=== PATIENT | female | born 1940 | race Two or more races ===

== ENCOUNTER 2018-02-06 15:21 | Observation (INO) | payer OTHER ==
--- NOTE | 2018-02-06 15:29 | PDOC ---
History of Present Illness - General Stated Complaint: Syncope/Near Syncope Time Seen by Provider: 02/06/18 15:28 History Source: Patient Exam Limitations: Language Barrier (Son at bedside.) - History of Present Illness Initial Comments: 02/06/18 15:29 The patient is a 77F with a PMH of HTN and DM who presents to the ER after sustaining a fall. The son is at bedside and is translating as the pt refused a telephone dewaterer operator. The son states that he was having an argument with his mother and she "dramatically" fell to the ground. She fell face forward and hit her head. She denies LOC but admits to a headache located in her occiput. She denies neck pain. She admits to mild CP, sharp, retrosternal, nonradiating, nonpleuritic. She also states she became slightly lightheaded before she fell. She admits to epigastric abdominal pain, CP, and resolved lightheadedness. She denies SOB. Past History - Past Medical History Allergies/Adverse Reactions: Allergies Allergy/AdvReac Type Severity Reaction Status Date / Time No Known Allergies Allergy Verified 02/06/18 15:46 Home Medications: Ambulatory Orders Amiodarone HCl 200 mg PO DAILY 02/06/18 Apixaban [Eliquis] 2.5 mg PO BID 02/06/18 Atorvastatin Ca [Lipitor] 80 mg PO HS 02/06/18 Levothyroxine [Synthroid -] 100 mcg PO DAILY 02/06/18 Losartan Potassium 100 mg PO DAILY 02/06/18 levETIRAcetam [Keppra -] 500 mg PO BID 02/06/18 Review of Systems - Review of Systems Able to Perform ROS?: Yes Comments:: 02/06/18 16:48 GENERAL/CONSTITUTIONAL: Positive for fall. No fever or chills. No weakness. HEAD, EYES, EARS, NOSE AND THROAT: No change in vision. No ear pain or discharge. No sore throat. CARDIOVASCULAR: Positive for chest pain and lightheadedness. No palpitations. RESPIRATORY: No cough, wheezing, shortness of breath, or hemoptysis. GASTROINTESTINAL: Positive for abdominal pain. No nausea, vomiting, diarrhea, or constipation. GENITOURINARY: No dysuria, frequency, hematuria, or change in urination. MUSCULOSKELETAL: No joint or muscle swelling or pain. No neck or back pain. SKIN: No rash or lesions. NEUROLOGIC: No headache, numbness, tingling, weakness, loss of consciousness, or change in strength/sensation. ENDOCRINE: No increased thirst. No abnormal weight change. HEMATOLOGIC/LYMPHATIC: No anemia, easy bleeding, or history of blood clots. ALLERGIC/IMMUNOLOGIC: No hives or skin allergy. Is the patient limited Thai proficient: No *Physical Exam - Physical Exam Comments: 02/06/18 16:50 GENERAL: Well developed, well nourished. Awake and alert. No acute distress. HEENT: Normocephalic, atraumatic. Hearing grossly normal. Moist mucous membranes. PERRLA, EOMI. No conjunctival pallor. Sclera are non-icteric. NECK: Supple. Full ROM. No JVD. CARDIOVASCULAR: Regular rate and rhythm. No murmurs, rubs, or gallops. PULMONARY: No evidence of respiratory distress. Lungs clear to auscultation bilaterally. No wheezing, rales or rhonchi. ABDOMINAL: Soft. Non-tender. Non-distended. No rebound or guarding. GENITOURINARY: No CVA tenderness bilaterally. MUSCULOSKELETAL: TTP over anterior rib cage over sternum. Normal range of motion at all joints. EXTREMITIES: No cyanosis. No clubbing. No edema. No calf tenderness or swelling. SKIN: Warm and dry. Normal capillary refill. No rashes. No jaundice. NEUROLOGICAL: Alert, awake, appropriate. Cranial nerves 2-12 intact. Normal speech. PSYCHIATRIC: Cooperative. Good eye contact. Appropriate mood and affect. ED Treatment Course - LABORATORY CBC & Chemistry Diagram: 02/06/18 16:22 02/06/18 16:22 Medical Decision Making - Medical Decision Making 02/06/18 16:50 The patient is a 77F with a PMH of HTN and DM who presents after having a questionable syncope episode with CP, lightheadedness, and fall. CTH negative. EKG NSR. CBC, CMP, trop negative. HEART score of 4, will require obs. 02/06/18 18:35 I have endorsed the patient to Dr. Negrete for obs tele admission. *DC/Admit/Observation/Transfer Diagnosis at time of Disposition: Chest pain Qualifiers: Chest pain type: unspecified Qualified Code(s): R07.9 - Chest pain, unspecified - Discharge Dispostion Condition at time of disposition: Guarded Decision to Admit order: Yes - Referrals Referrals: Deonte Putnam MD [Primary Care Provider] - - Patient Instructions - Post Discharge Activity
[2018-02-06 15:50] VITALS: BMI 30.7
[2018-02-06] MEDS ORDERED: ACETAMINOPHEN 1000 MG/100 ML VIAL (NON FORMULARY) IVPB ONE (15:59)
[2018-02-06 16:31] LABS: HEMATOCRIT 36.5 % (32.4-45.2); HEMOGLOBIN 12.1 GM/dL (10.7-15.3); LYMPH % 30.3 % (8-40); MCH 29.8 pg (25.7-33.7); MCHC 33.1 g/dl (32.0-36.0); MEAN PLT VOLUME 8.3 fl (7.5-11.1); MONO % 10.5 % (3.8-10.2); NEUT % 54.2 % (42.8-82.8); PLATELET COUNT 201 K/MM3 (134-434); RBC 4.06 M/mm3 (3.60-5.2); RDW 15.1 % (11.6-15.6)
[2018-02-06 16:40] LABS: URINE APPEARANCE CLEAR; URINE BILIRUBIN NEGATIVE (<2.0 mg/dL); URINE COLOR STRAW; URINE GLUCOSE (UA) NEGATIVE (NEGATIVE); URINE KETONE NEGATIVE (NEGATIVE); URINE NITRITE NEGATIVE (NEGATIVE); URINE PROTEIN NEGATIVE (NEGATIVE); URINE UROBILINOGEN NEGATIVE mg/dL (0.2-1.0)
[2018-02-06] MEDS ORDERED: ACETAMINOPHEN 325 MG TABLET (FP) PO ONE (16:52)
[2018-02-06] MEDS ORDERED: ACETAMINOPHEN 325 MG TABLET (FP) ONE (16:53)
[2018-02-06 16:54] LABS: ALBUMIN 3.3 g/dl (3.4-5.0); ANION GAP 9 (8-16); BILIRUBIN,TOTAL 0.6 mg/dL (0.2-1.0); BLOOD UREA NITROGEN 23 mg/dL (7-18); CHLORIDE 109 mmol/L (98-107); CO2 27 mmol/L (21-32); GLUCOSE,RANDOM 106 mg/dL (74-106); LIPASE 112 U/L (73-393); SGOT/AST 35 U/L (15-37); SGPT/ALT 37 U/L (12-78); SODIUM 145 mmol/L (136-145); TOT PROT 8.3 g/dl (6.4-8.2)
[2018-02-06 16:56] LABS: URINE LEUK ESTERASE 2+ (NEGATIVE)
[2018-02-06 16:57] LABS: ALK PHOS 105 U/L (45-117)
[2018-02-06 17:00] LABS: EPI CELLS RARE /HPF (FEW); URINE MUCUS RARE
--- NOTE | 2018-02-06 17:35 | PDOC ---
Attending Attestation - HPI HPI: 02/06/18 17:39 The patient is a 77 year old female with a significant past medical history of HTN and DM who presents to the ER with chest pain and head pain after sustaining a fall today. The son is at bedside and is translating as the pt refused a telephone urgent care physician assistant. The son states that he was having an argument with his mother and she "dramatically" fell to the ground. He states the patient fell face forward and hit her head. She denies LOC but admits to a headache located to her posterior head. She reports mild chest pain which she describes as sharp, to her midsternal region, nonradiating, nonpleuritic. She also states she became slightly lightheaded before she fell. The patient denies shortness of breath, headache and dizziness. The patient denies fever, chills, nausea, vomit, diarrhea and constipation. The patient denies dysuria, frequency, urgency and hematuria. Allergies: NKDA - Physicial Exam PE: 02/06/18 17:40 ROS: A complete review of 10 out of 10 review of systems is taken and is negative apart from what is previously mentioned below and in the HPI. Vitals: Triage vital signs reviewed General Appearance: No acute distress, well nourished, well developed Head: Atraumatic Eyes: Pupils equal reactive round, extraocular movement intact Neck: Supple; No nuchal rigidity Chest Wall: +mildly tender to palpation Cardiac: Regular rate and rhythm, no murmurs, no rubs, no gallops Lungs: Clear to auscultation bilateral, good air movement bilaterally Abdomen: Soft, nondistended, normal bowel sounds, nontender to palpation Extremities: Full range of motion to all extremities, no cyanosis, clubbing, or edema Skin: Warm and dry, no rashes or lesions, no rash, no petechiae Neuro: AOX3; Cranial Nerves 2-12 grossly intact, Strength intact to all extremities, Sensation intact to all extremities, gait normal Psych: Normal mood, normal affect - Medical Decision Making 02/06/18 17:39 77 year old female with a significant past medical history of HTN and DM who presents to the ER with chest pain and head pain after sustaining a fall today. Plan: ekg, labs, meds 02/06/18 17:40 Documentation prepared by Nithya Shirley, acting as medical transcription editor for Hermann Little MD <Nithya Shirley - Last Filed: 02/06/18 18:55> - Resident Resident Name: Daniele Huerta - ED Attending Attestation I have performed the following: I have examined & evaluated the patient, The case was reviewed & discussed with the resident, I agree w/resident's findings & plan, Exceptions are as noted - Medical Decision Making Heart score 4 atypical chest discomfort We'll admit to medicine for serial troponins and further management. <Hermann Little - Last Filed: 02/06/18 19:25> Heart Score/ECG Review - ECG Impressions Comment:: 02/06/18 19:24 EKG performed at 1657 demonstrates normal sinus rhythm incomplete right bundle- branch block no ST elevations isolated T-wave inversion in lead 3 Interpreted by me. <Hermann Little - Last Filed: 02/06/18 19:25>
[2018-02-06 19:33] LABS: INR 1.12 (0.82-1.09); PROTHROMBIN TIME (PATIENT) 12.6 SEC (9.7-13.0)
--- NOTE | 2018-02-06 20:57 | PN ---
Teaching Attending Note Name of Resident: Rah Chang ATTENDING PHYSICIAN STATEMENT I saw and evaluated the patient. I reviewed the resident's note and discussed the case with the resident. I agree with the resident's findings and plan as documented. SUBJECTIVE: Patient is a 77 year of woman with a PMH of HTN and NIDDM who presents to the ER after a fall. The son states that he was having an argument with his mother and she "dramatically" fell to the ground. She fell face forward and hit her head. She denies LOC but admits to a headache located in her occiput. She denies neck pain. She admits to mild chest pain, sharp, retrosternal, nonradiating, and nonpleuritic. She also states she became slightly lightheaded before she fell. She denies diaphoresis or SOB. She has a history of and "arrhythmia" - likely paroxysmal afib for which she is on amiodarone and Eliquis. OBJECTIVE: Alert and still has occipital headache. Not orthostatic. Vital Signs Period Temp Pulse Resp BP Sys/Su Pulse Ox Last 24 Hr 97.7 F-98.6 F 62-77 18-20 183-204/86-104 96-98 HEENT: No Jaundice, eye redness or discharge, PERRLA, EOMI. Poor dentition. Normocephalic, atraumatic. Impaired vision. External ears are normal and hearing is grossly intact. No nasal discharge. Neck: Supple, nontender. No palpable adenopathy or thyromegaly. No JVD Chest: Good effort. Clear to auscultation and percussion. Heart: Regular. No S3, rub or murmur Abdomen: Not distended, soft, nontender and no HSM. No rebound or guarding. Normoactive bowel sounds. Ext: Peripheral pulses intact. Tenderness in her legs. No leg edema. Skin: Warm and dry. No petechiae, rash or ecchymosis. Neuro: Alert. Oriented x3. CN 2-12 grossly intact. Sensation grossly intact in all four extremities and DTR are symmetric. Home Medications Medication Instructions Recorded Amiodarone HCl 200 mg PO DAILY 02/06/18 Apixaban [Eliquis] 2.5 mg PO BID 02/06/18 Atorvastatin Ca [Lipitor] 80 mg PO HS 02/06/18 Levothyroxine [Synthroid -] 100 mcg PO DAILY 02/06/18 Losartan Potassium 100 mg PO DAILY 02/06/18 levETIRAcetam [Keppra -] 500 mg PO BID 02/06/18 Abnormal Lab Results 02/06/18 02/06/18 02/06/18 16:22 16:22 16:27 Monocytes % 10.5 H Chloride 109 H BUN 23 H Total Protein 8.3 H Albumin 3.3 L Ur Leukocyte Esterase 2+ H ASSESSMENT AND PLAN: 1. Syncope - Sounds like vasovagal syncope. Head CT is negative. In view of chest pain, will admit to telemetry to rule out ACS. Initial troponin and EKG are negative for ACSl. Get carotid doppler, brain MRI/MRA and ECHO. Consult neurology and cardiology. She does not know why she is on Eliquis - repeat head CT scan tomorrow if headache persists. Will get an xray to rule out leg fracture. Add amlodipine 5 mg po q pm to ensure smooth round the clock BP control and stress low salt diet. 2. Seizure disorder - Continue keppra. 3. DVT prophylaxis - On Eliquis 4. Advance directives - Full code
[2018-02-07] MEDS ORDERED: ACETAMINOPHEN 325 MG TABLET (FP) PO PRN ×2 (01:46→01:51)
[2018-02-07] MEDS ORDERED: amLODIPine BESYLATE 2.5 MG TABLET (FP) PO SCH (01:47)
[2018-02-07] MEDS ORDERED: amLODIPine BESYLATE 5 MG TABLET (FP) ONE (01:55)
--- NOTE | 2018-02-07 04:17 | HP ---
CHIEF COMPLAINT: PCP: HISTORY OF PRESENT ILLNESS: Personal Clothing Laundry Aide [id number]. Pt is a poor historian 77F with a PMH of HTN, hypothyroid and DM p/w mechanical fall. Per son, he was having an argument with his mother and she "dramatically" fell to the ground. She fell face forward and hit her head. Per pt, she felt lightheaded before she fell but denies LOC. After falling she felt a headache located in her occiput and some mild CP, sharp, retrosternal, nonradiating, nonpleuritic, says this CP is similar but not as bad as her CP in [place] where she went to hospital and was told she "almost had a heart attack". Pt endorses multiple hx of falls, says her legs feel weak. Has fallen in shower and at rehab center, due to falls she has had had hip frax. Denies fevers, abd pain, n/v/d, dysuria, hematuria, blood in stools ER course was notable for: (1)tylenol (2) (3) Recent Travel: PAST MEDICAL HISTORY: cataracts in eyes eye doc - one mo ago foot doc - ? thyroid cancer? says got bx 3 mo ago and was told she has cancer, she is do for another bx in a mo. pt taking synthroid hip fractures - has had multiple falls PAST SURGICAL HISTORY: dean Social History: Smoking: denies Alcohol:denies Drugs: denies Family History: mom DM sister heart problems Allergies Penicillins Allergy (Severe, Verified 02/07/18 00:45) Swelling HOME MEDICATIONS: Home Medications Medication Instructions Recorded Amiodarone HCl 200 mg PO DAILY 02/06/18 Apixaban [Eliquis] 2.5 mg PO BID 02/06/18 Atorvastatin Ca [Lipitor] 80 mg PO HS 02/06/18 Levothyroxine [Synthroid -] 100 mcg PO DAILY 02/06/18 Losartan Potassium 100 mg PO DAILY 02/06/18 levETIRAcetam [Keppra -] 500 mg PO BID 02/06/18 REVIEW OF SYSTEMS reviewed in HPI PHYSICAL EXAMINATION Vital Signs - 24 hr 02/06/18 02/06/18 02/06/18 15:46 18:39 20:27 Temperature 98.6 F 97.7 F Pulse Rate 77 Pulse Rate [ 66 62 Left Radial] Respiratory 18 20 20 Rate Blood Pressure 204/104 Blood Pressure 183/88 187/86 [Left Arm] O2 Sat by Pulse 97 96 98 Oximetry (%) 02/07/18 02:12 Temperature Pulse Rate Pulse Rate [ 63 Left Radial] Respiratory 20 Rate Blood Pressure Blood Pressure 157/79 [Left Arm] O2 Sat by Pulse 100 Oximetry (%) GENERAL: Awake, alert, and fully oriented, in mild distress. obese HEAD: Normal with no obvious signs of trauma. EYES: PERRLA, extraocular movements intact, sclera anicteric, conjunctiva clear. No lid lag. EARS, NOSE, THROAT: nares patent, oropharynx clear without exudates. MMM. poor dentition NECK: Normal range of motion, supple without lymphadenopathy, JVD, or masses. LUNGS: CTAB. No wheezes, and no crackles. No accessory muscle use. HEART: RRR, normal S1 and S2 without murmur, rub or gallop. TTP w/ sternal rub ABDOMEN: Soft, NTND +BS, no guarding, no rebound, no masses. No hepatomegaly or splenomegaly. MUSCULOSKELETAL: LE exam limited due to pain. TTP along hips/pelvic b/l UPPER EXTREMITIES: 2+ pulses, warm, well-perfused. No cyanosis. No clubbing. No peripheral edema. LOWER EXTREMITIES: feet were cold but well perfused and 2+ pulses. +calf tenderness b/l. TTP along tibia b/l. No peripheral edema. NEUROLOGICAL: Cranial nerves II-XII intact. Normal speech. SKIN: Warm, dry, normal turgor, no rashes or lesions noted, normal capillary refill. Laboratory Results - last 24 hr 02/06/18 02/06/18 02/06/18 16:22 16:22 16:27 WBC 4.0 RBC 4.06 Hgb 12.1 Hct 36.5 MCV 90.0 MCH 29.8 MCHC 33.1 RDW 15.1 Plt Count 201 MPV 8.3 Absolute Neuts (auto) 2.2 Neutrophils % 54.2 Lymphocytes % 30.3 Monocytes % 10.5 H Eosinophils % 4.0 Basophils % 1.0 Nucleated RBC % 0 PT with INR INR Sodium 145 Potassium 4.0 Chloride 109 H Carbon Dioxide 27 Anion Gap 9 BUN 23 H Creatinine 1.0 Creat Clearance w eGFR 53.48 Random Glucose 106 Calcium 9.0 Total Bilirubin 0.6 AST 35 ALT 37 Alkaline Phosphatase 105 Creatine Kinase 48 Troponin I < 0.02 C-Reactive Protein Total Protein 8.3 H Albumin 3.3 L Lipase 112 TSH Urine Color Straw Urine Appearance Clear Urine pH 7.0 Ur Specific [place] 1.010 Urine Protein Negative Urine Glucose (UA) Negative Urine Ketones Negative Urine Blood Negative Urine Nitrite Negative Urine Bilirubin Negative Urine Urobilinogen Negative Ur Leukocyte Esterase 2+ H Urine WBC (Auto) 1 Urine RBC (Auto) 1 Ur Epithelial Cells Rare Urine Mucus Rare 02/06/18 02/07/18 02/07/18 19:00 02:05 02:05 WBC RBC Hgb Hct MCV MCH MCHC RDW Plt Count MPV Absolute Neuts (auto) Neutrophils % Lymphocytes % Monocytes % Eosinophils % Basophils % Nucleated RBC % PT with INR 12.60 INR 1.12 Sodium Potassium Chloride Carbon Dioxide Anion Gap BUN Creatinine Creat Clearance w eGFR Random Glucose Calcium Total Bilirubin AST ALT Alkaline Phosphatase Creatine Kinase Troponin I 0.03 C-Reactive Protein < 0.3 Total Protein Albumin Lipase TSH 0.19 L Urine Color Urine Appearance Urine pH Ur Specific [place] Urine Protein Urine Glucose (UA) Urine Ketones Urine Blood Urine Nitrite Urine Bilirubin Urine Urobilinogen Ur Leukocyte Esterase Urine WBC (Auto) Urine RBC (Auto) Ur Epithelial Cells Urine Mucus ASSESSMENT/PLAN: 77F with a PMH of HTN, hypothyroid and DM p/w mechanical fall/possible syncope Syncope - likely vasovagal syncope, no prodromal or seizure activity was noted. will admit to tele to monitor and evaluate for other possible causes. Pt is taking home meds for possible arrhythmia? was dx and tx in [place]. Pt also endorsing weakness/pain in legs and feeling unbalanced -Head CT is negative for stroke hemorrhage. Although she is on Eliquis (doesnt know why) - rpt head CT scan tomorrow if headache persists -brain MRI/MRA r/o stroke -carotid doppler and ECHO -Consult neurology and cardiology -orthostatics -xray to rule out leg fracture and hip fracture -ESR/CRP - for possible muscle inflammation/disease as cause for her LE pain and weakness Chest pain- will admit to tele and rule out ACS, although initial troponin and EKG are negative for ACSl. CP is reproducible on PE Seizure disorder - Continue home dose keppra. HTN - BP was noted to be 204/104 and then 187/86 -Add amlodipine 5 mg po q pm to ensure smooth round the clock BP control -low salt diet. -c/w losartan home dose DM - not on insulin or meds -Hgb A1c -BGM -sliding scale Thyroid - taking meds for Hypothyroid. per pt has thyroid CA? can try confirming -TSH, T4, T3 Obesity - -Will provide necessary assistance , counseling and positive reinforcement to facilitate weight loss. -Consult personal computer specialist. HCM -c/w home dose meds for HTN, HLD, seizure, hypothyroid -c/w home dose meds for arrhythmia? #FEN -no IVF at this time -replete lytes as needed -low sodium/fat/diabetic diet #DVTppx On Eliquis #Dispo -admit to tele -Full code case discussed with attending, Dr. Lares. -Rah Chang MD PGY1 Visit type - Emergency Visit Emergency Visit: Yes ED Registration Date: 02/07/18 Care time: The patient presented to the Emergency Department on the above date and was hospitalized for further evaluation of their emergent condition. - New Patient This patient is new to me today: Yes Date on this admission: 02/07/18 - Critical Care Critical Care patient: No Hospitalist Screening - Colonoscopy Questionnaire Colonoscopy Questionnaire: Colonoscopy Questionnaire - Patient: 50 - 75 years old and never had a screening colonoscopy: Unknown History of colon or rectal polyps, or CA: Unknown History of IBD, Crohn's disease or UC: Unknown History of abdominal radiation therapy as a child: Unknown - Relative: 1 with colon or rectal CA, or polyps at age 60 or younger: Unknown Colon or rectal CA diagnosed at age 45 or younger: Unknown Multiple relatives with colon or rectal CA: Unknown - Outcome: Screening Result: Negative Screen
[2018-02-07 06:17] LABS: BASO % 0.8 % (0-2.0); EOS % 3.4 % (0-4.5); HEMATOCRIT 34.3 % (32.4-45.2); HEMOGLOBIN 11.4 GM/dL (10.7-15.3); LYMPH % 32.4 % (8-40); MCHC 33.3 g/dl (32.0-36.0); MEAN CELL VOLUME 89.9 fl (80-96); MEAN PLT VOLUME 8.3 fl (7.5-11.1); MONO % 9.4 % (3.8-10.2); PLATELET COUNT 172 K/MM3 (134-434); RBC 3.81 M/mm3 (3.60-5.2); RDW 15.1 % (11.6-15.6); WHITE BLOOD COUNT 3.9 K/mm3 (4.0-10.0)
[2018-02-07 06:46] LABS: ALBUMIN 3.3 g/dl (3.4-5.0); ALK PHOS 105 U/L (45-117); ANION GAP 6 (8-16); BILIRUBIN,TOTAL 0.7 mg/dL (0.2-1.0); BLOOD UREA NITROGEN 25 mg/dL (7-18); CALCIUM 8.8 mg/dL (8.5-10.1); CHLORIDE 109 mmol/L (98-107); CO2 29 mmol/L (21-32); CREATININE 1.1 mg/dL (0.55-1.02); GLUCOSE,RANDOM 106 mg/dL (74-106); MAGNESIUM 2.2 mg/dL (1.8-2.4); PHOSPHOROUS 3.6 mg/dL (2.5-4.9); POTASSIUM 3.9 mmol/L (3.5-5.1); SGOT/AST 29 U/L (15-37); SGPT/ALT 35 U/L (12-78); SODIUM 144 mmol/L (136-145); TOT PROT 7.9 g/dl (6.4-8.2)
[2018-02-07] MEDS ORDERED: INSULIN (NOVOLOG) ASPART 100 UNITS/ML 10ML VIAL SQ SCH (07:00)
[2018-02-07 07:04] LABS: INR 1.11 (0.82-1.09); PROTHROMBIN TIME (PATIENT) 12.5 SEC (9.7-13.0)
[2018-02-07 07:07] LABS: ACTIVATED PTT 30.9 SECONDS (25.2-36.5)
[2018-02-07] MEDS ORDERED: LEVOTHYROXINE NA 25 MCG TABLET (FP) ONE (08:11)
[2018-02-07] MEDS: LEVOTHYROXINE NA 100 MCG TABLET (FP) PO SCH (08:16)
[2018-02-07] MEDS: levETIRAcetam 500 MG TABLET (FP) PO SCH ×2 (09:43→21:26)
[2018-02-07] MEDS: APIXABAN 2.5 MG TABLET PO SCH ×2 (09:43→21:26)
[2018-02-07] MEDS: AMIODARONE HCL 200 MG TABLET (FP) PO SCH (09:43)
[2018-02-07] MEDS: amLODIPine BESYLATE 5 MG TABLET (FP) PO SCH (09:43)
[2018-02-07] MEDS: LOSARTAN POTASSIUM 50 MG TABLET (FP) PO SCH (09:43)
--- NOTE | 2018-02-07 09:47 | CONSULT ---
Consult - text type - Consultation Consultation Note: Neurology HISTORY OF PRESENT ILLNESS: 77F with a PMH of HTN, hypothyroid and DM p/w mechanical fall. Per son, he was having an argument with his mother and she "dramatically" fell to the ground. She fell face forward and hit her head. Per pt, she felt lightheaded before she fell but denies LOC. After falling she felt a headache located in her occiput and some mild CP, sharp, retrosternal, nonradiating, nonpleuritic, says this CP is similar but not as bad as her CP in [place] where she went to hospital and was told she "almost had a heart attack". CT head completed and without acute changes. During my evaluation, no complaints and states she is at baseline. CT head completed and without acute changes. Is at baseline. PAST MEDICAL HISTORY: cataracts in eyes eye doc - one mo ago foot doc - ? thyroid cancer? says got bx 3 mo ago and was told she has cancer, she is do for another bx in a mo. pt taking synthroid hip fractures - has had multiple falls PAST SURGICAL HISTORY: dean Social History: Smoking: denies Alcohol:denies Drugs: denies Family History: mom DM sister heart problems Allergies Penicillins Allergy (Severe, Verified 02/07/18 00:45) Swelling HOME MEDICATIONS: Home Medications Medication Instructions Recorded Amiodarone HCl 200 mg PO DAILY 02/06/18 Apixaban [Eliquis] 2.5 mg PO BID 02/06/18 Atorvastatin Ca [Lipitor] 80 mg PO HS 02/06/18 Levothyroxine [Synthroid -] 100 mcg PO DAILY 02/06/18 Losartan Potassium 100 mg PO DAILY 02/06/18 levETIRAcetam [Keppra -] 500 mg PO BID 02/06/18 REVIEW OF SYSTEMS Negative except HPI PHYSICAL EXAMINATION Vital Signs Period Temp Pulse Resp BP Sys/Su Pulse Ox Last 24 Hr 97.6 F-98.6 F 60-77 14-20 140-204/75-108 96-100 GENERAL: Awake, alert, and fully oriented, in mild distress. obese HEAD: Normal with no obvious signs of trauma. EYES: PERRLA, extraocular movements intact, sclera anicteric, conjunctiva clear. No lid lag. EARS, NOSE, THROAT: nares patent, oropharynx clear without exudates. MMM. poor dentition NECK: Normal range of motion, supple without lymphadenopathy, JVD, or masses. LUNGS: CTAB. No wheezes, and no crackles. No accessory muscle use. HEART: RRR, normal S1 and S2 without murmur, rub or gallop. TTP w/ sternal rub ABDOMEN: Soft, NTND +BS, no guarding, no rebound, no masses. No hepatomegaly or splenomegaly. MUSCULOSKELETAL: LE exam limited due to pain. TTP along hips/pelvic b/l UPPER EXTREMITIES: 2+ pulses, warm, well-perfused. No cyanosis. No clubbing. No peripheral edema. LOWER EXTREMITIES: feet were cold but well perfused and 2+ pulses. +calf tenderness b/l. TTP along tibia b/l. No peripheral edema. NEUROLOGICAL: Cranial nerves II-XII intact. Normal speech, moves all extremities equally sensory intact, gait without ataxia SKIN: Warm, dry, normal turgor, no rashes or lesions noted, normal capillary refill. Laboratory Results - last 24 hr 02/06/18 02/06/18 02/06/18 16:22 16:22 16:27 WBC 4.0 RBC 4.06 Hgb 12.1 Hct 36.5 MCV 90.0 MCH 29.8 MCHC 33.1 RDW 15.1 Plt Count 201 MPV 8.3 Absolute Neuts (auto) 2.2 Neutrophils % 54.2 Lymphocytes % 30.3 Monocytes % 10.5 H Eosinophils % 4.0 Basophils % 1.0 Nucleated RBC % 0 PT with INR INR Sodium 145 Potassium 4.0 Chloride 109 H Carbon Dioxide 27 Anion Gap 9 BUN 23 H Creatinine 1.0 Creat Clearance w eGFR 53.48 Random Glucose 106 Calcium 9.0 Total Bilirubin 0.6 AST 35 ALT 37 Alkaline Phosphatase 105 Creatine Kinase 48 Troponin I < 0.02 C-Reactive Protein Total Protein 8.3 H Albumin 3.3 L Lipase 112 TSH Urine Color Straw Urine Appearance Clear Urine pH 7.0 Ur Specific [place] 1.010 Urine Protein Negative Urine Glucose (UA) Negative Urine Ketones Negative Urine Blood Negative Urine Nitrite Negative Urine Bilirubin Negative Urine Urobilinogen Negative Ur Leukocyte Esterase 2+ H Urine WBC (Auto) 1 Urine RBC (Auto) 1 Ur Epithelial Cells Rare Urine Mucus Rare 02/06/18 02/07/18 02/07/18 19:00 02:05 02:05 WBC RBC Hgb Hct MCV MCH MCHC RDW Plt Count MPV Absolute Neuts (auto) Neutrophils % Lymphocytes % Monocytes % Eosinophils % Basophils % Nucleated RBC % PT with INR 12.60 INR 1.12 Sodium Potassium Chloride Carbon Dioxide Anion Gap BUN Creatinine Creat Clearance w eGFR Random Glucose Calcium Total Bilirubin AST ALT Alkaline Phosphatase Creatine Kinase Troponin I 0.03 C-Reactive Protein < 0.3 Total Protein Albumin Lipase TSH 0.19 L Urine Color Urine Appearance Urine pH Ur Specific [place] Urine Protein Urine Glucose (UA) Urine Ketones Urine Blood Urine Nitrite Urine Bilirubin Urine Urobilinogen Ur Leukocyte Esterase Urine WBC (Auto) Urine RBC (Auto) Ur Epithelial Cells Urine Mucus CT head reviewed ASSESSMENT/PLAN: 77F with a PMH of HTN, hypothyroid and DM p/w mechanical fall. Per son, he was having an argument with his mother and she "dramatically" fell to the ground. She fell face forward and hit her head. Per pt, she felt lightheaded before she fell but denies LOC. After falling she felt a headache located in her occiput and some mild CP, sharp, retrosternal, nonradiating, nonpleuritic, says this CP is similar but not as bad as her CP in [place] where she went to hospital and was told she "almost had a heart attack". CT head completed and without acute changes. During my evaluation, no complaints and states she is at baseline. CT head completed and without acute changes. Is at baseline. MRI, MRA discontined, not needed check orthostatics Cardiology eval/ followup Increase hydration can have physical therapy Event not consistent with seizure, can continue home medication Monitor blood pressure, maintain normotensive range Can cont losartan, follow up cardiology recs Monitor Glucose, maintain euglycemic range Fall precautions
--- NOTE | 2018-02-07 10:07 | EKG ---
Test Reason : Blood Pressure : / mmHG Vent. Rate : 068 BPM Atrial Rate : 068 BPM P-R Int : 156 ms QRS Dur : 112 ms QT Int : 448 ms P-R-T Axes : 039 -25 018 degrees QTc Int : 476 ms NORMAL SINUS RHYTHM INCOMPLETE RIGHT BUNDLE BRANCH BLOCK VOLTAGE CRITERIA FOR LEFT VENTRICULAR HYPERTROPHY ABNORMAL ECG NO PREVIOUS ECGS AVAILABLE Confirmed by CLEMENTINA PLAZA MD ([id number]) on 02/07/2018 10:07:06 AM Referred By: Confirmed By:CLEMENTINA PLAZA MD
--- NOTE | 2018-02-07 12:11 | CON.CARD ---
Consult Consult Specialty:: Cardiology - History of Present Illness Chief Complaint: syncope History of Present Illness: 77F with a PMH of HTN, hypothyroid and DM p/w mechanical fall. Per son, he was having an argument with his mother and she "dramatically" fell to the ground. She fell face forward and hit her head. Per pt, she felt lightheaded before she fell but denies LOC. After falling she felt a headache located in her occiput and some mild CP, sharp, retrosternal, nonradiating, nonpleuritic, says this CP is similar but not as bad as her CP in [place] where she went to hospital and was told she "almost had a heart attack". Pt endorses multiple hx of falls, says her legs feel weak. Has fallen in shower and at rehab center, due to falls she has had had hip frax. - History Source History Provided By: Patient, Medical Record - Alcohol/Substance Use Hx Alcohol Use: No - Smoking History Smoking history: Never smoked Have you smoked in the past 12 months: No Home Medications - Allergies Allergies/Adverse Reactions: Allergies Allergy/AdvReac Type Severity Reaction Status Date / Time Penicillins Allergy Severe Swelling Verified 02/07/18 00:45 - Home Medications Home Medications: Ambulatory Orders Amiodarone HCl 200 mg PO DAILY 02/06/18 Apixaban [Eliquis] 2.5 mg PO BID 02/06/18 Atorvastatin Ca [Lipitor] 80 mg PO HS 02/06/18 Levothyroxine [Synthroid -] 100 mcg PO DAILY 02/06/18 Losartan Potassium 100 mg PO DAILY 02/06/18 levETIRAcetam [Keppra -] 500 mg PO BID 02/06/18 Vital Signs: Vital Signs Temperature 98 F 02/07/18 09:43 Pulse Rate 69 02/07/18 09:43 Respiratory Rate 14 02/07/18 09:43 Blood Pressure 160/89 02/07/18 09:43 O2 Sat by Pulse Oximetry (%) 99 02/07/18 09:43 - Other Data Labs, Other Data: CBC, BMP 02/07/18 06:05 02/07/18 06:05 INR, PTT INR 1.11 (0.82-1.09) 02/07/18 06:05 Troponin, BNP 02/06/18 02/07/18 02/07/18 16:22 02:05 06:05 Troponin I < 0.02 0.03 < 0.02 02/07/18 09:44 Troponin I < 0.02 Troponin, BNP 02/06/18 02/07/18 02/07/18 16:22 02:05 06:05 Troponin I < 0.02 0.03 < 0.02 02/07/18 09:44 Troponin I < 0.02 Imaging - Results Chest X-ray: Image Reviewed (no i/e) EKG: Image Reviewed (sr incomplete rbbb rep abn) Problem List - Problems (1) Chest pain Code(s): R07.9 - CHEST PAIN, UNSPECIFIED Qualifiers: Chest pain type: unspecified Qualified Code(s): R07.9 - Chest pain, unspecified Assessment/Plan syncope cp dm hypothyroidism htn hlp unclear why on AC AC with Eliquis ?-Amiodarone - suggests PAF Plan; echo c duplex telemetry r/o mi old records will need a stress test for risk stratification
--- NOTE | 2018-02-07 14:30 | ECHO ---
Name: MARLYN ZAVALA Exam:Adult Echocardiogram Study Date: 02/07/2018 08:40 AM Age: 77 yrs Reason For Study: SYNCOPE Height: 69 in Weight: 208 lb BSA: 2.1 m2 MMode/2D Measurements & Calculations IVSd: 1.4 cm Ao root diam: 3.1 cm LVIDd: 3.9 cm LA dimension: 3.6 cm LVIDs: 2.9 cm LVPWd: 1.4 cm EDV(Teich): 67.0 ml ESV(Teich): 32.4 ml Doppler Measurements & Calculations MV E max edgar: 78.1 cm/sec AI P1/2t: 1828 msec MV A max edgar: 110.6 cm/sec MV E/A: 0.71 MV dec time: 0.44 sec AI max edgar: 202.2 cm/sec Med Peak E' Edgar: 8.2 cm/sec AI max P.4 mmHg Med E/e': 9.6 Lat Peak E' Edgar: 8.2 cm/sec AI dec slope: 32.4 cm/sec2 Lat E/e': 9.6 Procedure A two-dimensional transthoracic echocardiogram with color flow and Doppler was performed. The study w as technically difficult with many images being suboptimal in quality. Left Ventricle There is mild concentric left ventricular hypertrophy. The left ventricular ejection fraction is norm al. E/A reversal consistent with but not diagnostic of poor LV compliance. The left ventricular wall motion i s normal. Right Ventricle The right ventricle is normal in size and function. Atria Normal left and right atrial size and function. Mitral Valve There is mild mitral valve thickening. There is no mitral valve stenosis. There is mild mitral regurg itation. Tricuspid Valve There is mild tricuspid valve thickening. There is no tricuspid stenosis. There was insufficient TR d etected to calculate RV systolic pressure. Aortic Valve The aortic valve is not well visualized. No hemodynamically significant valvular aortic stenosis. Tra ce aortic regurgitation. Pulmonic Valve The pulmonic valve is not well visualized. There is no pulmonic valvular stenosis. There is no pulmon ic valvular regurgitation. Great Vessels The aortic root is normal size. Pericardium/Pleura There is no pericardial effusion. Interpretation Summary There is mild concentric left ventricular hypertrophy. The left ventricular ejection fraction is normal. The left ventricular wall motion is normal. There is mild mitral regurgitation. The study was technically difficult with many images being suboptimal in quality. Trace aortic regurgitation. E/A reversal consistent with but not diagnostic of poor LV compliance MD Fransisco Redding 02/07/2018 02:29 PM
--- NOTE | 2018-02-07 14:55 | PN ---
Teaching Attending Note Name of Resident: Danish Cheek ATTENDING PHYSICIAN STATEMENT I saw and evaluated the patient. I reviewed the resident's note and discussed the case with the resident. I agree with the resident's findings and plan as documented. SUBJECTIVE: seen , in am denied CP or SOB, or GUTIERREZ , or visual changes. no pain any where in her body OBJECTIVE: NAD CV: RRR Lungs: CTAB ext: TTP in L leg . no edema or erythema. Neuro" EOMI, round equal reactive pupils. no facial droop. tongue at mid line. strength ( poor cooperation , unable to evaluate strength at LE ) has 5/5 strength in upper extremities proximally and distally. sensation to light touch NL. 2+ knee jerk b/l and 1+ biceps b/l ASSESSMENT AND PLAN: 77 y/o lady with h/o Dm, HTN, and arrhythmia ( likely A fib on amio and eliquis ) who presented with a fall and questionable syncope during an argument with her son. 1- fall , and questionable syncope: patient is poor historian and changes her story. unlikely had syncope, and if she did , likely it was vasovagal. . neg orthostatics. , neg head CT. Nl neuro exam ( limited though), no suspicion for stroke or seizure. No need for MRI 2- CP: resolved. EKG with sinus rhythm with TWI in III. Nl trop will confirm with card if stress test can be done as out pt 3- h/o Arrhythmia ( likely A fib, on eliquis and Amiodarone ) - cont meds . will confirm her eliquis dose ( 2.5 vs 5 BID ) - f/u with card 4-h/o seizure : cont home keppra 5- HTN urgency : cont Losartan and Norvasc. dipso : depends on her stress test .
--- NOTE | 2018-02-07 18:21 | PN ---
Physical Exam: SUBJECTIVE: Patient seen and examined at bedside. No acute complaints. OBJECTIVE: Vital Signs Period Temp Pulse Resp BP Sys/Su Pulse Ox Last 24 Hr 97.6 F-98.3 F 60-78 14-20 132-187/75-108 96-100 GENERAL: The patient is awake, alert, and fully oriented, in no acute distress. HEAD: Normal with no signs of trauma. EYES: PERRLA, EOMI ENT: moist mucous membranes NECK: Trachea midline, full range of motion, supple LUNGS: Breath sounds equal, clear to auscultation bilaterally, no wheezes, no crackles, no accessory muscle use HEART: Regular rate and rhythm, S1, S2 without murmur, rub or gallop. Pain reproduced by palpation of chest wall. ABDOMEN: +bs, soft, NT, ND, vertical scar from umbilicus to symphysis pubis EXTREMITIES: 2+ pulses, warm, well-perfused, no edema, no LE swelling MSK: TTP diffusely, greatest at right hip and knee NEUROLOGICAL: Cranial nerves II-XII intact b/l, sensorium intact, poor compliance with motor strength assessment Laboratory Results - last 24 hr 02/06/18 02/07/18 02/07/18 19:00 02:05 02:05 WBC RBC Hgb Hct MCV MCH MCHC RDW Plt Count MPV Absolute Neuts (auto) Neutrophils % Lymphocytes % Monocytes % Eosinophils % Basophils % Nucleated RBC % ESR PT with INR 12.60 INR 1.12 PTT (Actin FS) Sodium Potassium Chloride Carbon Dioxide Anion Gap BUN Creatinine Creat Clearance w eGFR POC Glucometer Random Glucose Hemoglobin A1c % Calcium Phosphorus Magnesium Total Bilirubin AST ALT Alkaline Phosphatase Creatine Kinase Troponin I 0.03 C-Reactive Protein < 0.3 Total Protein Albumin TSH 0.19 L 02/07/18 02/07/18 02/07/18 06:05 06:05 06:05 WBC 3.9 L RBC 3.81 Hgb 11.4 Hct 34.3 MCV 89.9 MCH 30.0 MCHC 33.3 RDW 15.1 Plt Count 172 MPV 8.3 Absolute Neuts (auto) 2.1 Neutrophils % 54.0 Lymphocytes % 32.4 Monocytes % 9.4 Eosinophils % 3.4 Basophils % 0.8 Nucleated RBC % 0 ESR PT with INR 12.50 INR 1.11 PTT (Actin FS) 30.9 Sodium 144 Potassium 3.9 Chloride 109 H Carbon Dioxide 29 Anion Gap 6 L BUN 25 H Creatinine 1.1 H Creat Clearance w eGFR 47.91 POC Glucometer Random Glucose 106 Hemoglobin A1c % Calcium 8.8 Phosphorus 3.6 Magnesium 2.2 Total Bilirubin 0.7 AST 29 ALT 35 Alkaline Phosphatase 105 Creatine Kinase 48 Troponin I < 0.02 C-Reactive Protein Total Protein 7.9 Albumin 3.3 L TSH 02/07/18 02/07/18 02/07/18 06:05 08:00 09:44 WBC RBC Hgb Hct MCV MCH MCHC RDW Plt Count MPV Absolute Neuts (auto) Neutrophils % Lymphocytes % Monocytes % Eosinophils % Basophils % Nucleated RBC % ESR 32 H PT with INR INR PTT (Actin FS) Sodium Potassium Chloride Carbon Dioxide Anion Gap BUN Creatinine Creat Clearance w eGFR POC Glucometer Random Glucose Hemoglobin A1c % 5.8 Calcium Phosphorus Magnesium Total Bilirubin AST ALT Alkaline Phosphatase Creatine Kinase Troponin I < 0.02 C-Reactive Protein Total Protein Albumin TSH 02/07/18 12:51 WBC RBC Hgb Hct MCV MCH MCHC RDW Plt Count MPV Absolute Neuts (auto) Neutrophils % Lymphocytes % Monocytes % Eosinophils % Basophils % Nucleated RBC % ESR PT with INR INR PTT (Actin FS) Sodium Potassium Chloride Carbon Dioxide Anion Gap BUN Creatinine Creat Clearance w eGFR POC Glucometer [phone] Random Glucose Hemoglobin A1c % Calcium Phosphorus Magnesium Total Bilirubin AST ALT Alkaline Phosphatase Creatine Kinase Troponin I C-Reactive Protein Total Protein Albumin TSH Active Medications Generic Name Dose Route Start Last Admin Trade Name Freq PRN Reason Stop Dose Admin Acetaminophen 650 mg 02/07/18 01:51 02/07/18 02:10 Tylenol - PO 650 mg Q4H PRN Administration Fever Or Pain Amiodarone HCl 200 mg 02/07/18 10:00 02/07/18 09:43 Cordarone - PO 200 mg DAILY MEREDITH Administration Amlodipine Besylate 5 mg 02/07/18 10:00 02/07/18 09:43 Norvasc - PO 5 mg DAILY MERED[facility] Administration Apixaban 2.5 mg 02/07/18 10:00 02/07/18 09:43 Eliquis - PO 2.5 mg BID MEREDITH Administration Atorvastatin Calcium 80 mg 02/07/18 22:00 Lipitor - PO HS MEREDITH Levetiracetam 500 mg 02/07/18 10:00 07/25/18 09:43 Keppra - PO 500 mg BID MEREDITH Administration Levothyroxine Sodium 100 mcg 02/07/18 07:00 02/07/18 08:16 Synthroid - PO 100 mcg DAILY@0700 MEREDITH Administration Losartan Potassium 100 mg 02/07/18 10:00 02/07/18 09:43 Cozaar - PO 100 mg DAILY MERED[facility] Administration ASSESSMENT/PLAN: 77 y/o F w/ PMHx DM, HTN, "arrhythmia" on eliquis/amiodarone, ?Sz disorder on keppra, hypothyroidism, ?Bx positive for thyroid Ca, p/w mechanical fall vs syncope accompanied by non-radiating chest pain during argument over aluminum sheeting with her son #fall -inconsistent history from patient, uncertain whether LOC/syncope occurred -orthostatics negative -CT head negative #CP -resolved -serial troponins negative -EKG: NSR, TWI in lead III only -CXR: cardiomegaly, otherwise normal -cardiology consulted (Dr. Redding) -awaiting stress test tomorrow as per cardiology -NPO after midnight #hip/leg pain -XRs negative #?arrhythmia -c/w amiodarone and eliquis #DM -no home medication -HbA1C pre-diabetic range, no intervention indicated #Sz disorder -c/w keppra #HTN -c/w Losartan, Norvasc #HLD -c/w atorvastatin #FEN -no fluids -lytes wnl -NPO after midnight awaiting stress test #PPx -Eliquis AC #dispo -monitor on tele Visit type - Emergency Visit Emergency Visit: No - New Patient This patient is new to me today: Yes Date on this admission: 02/07/18 - Critical Care Critical Care patient: No
[2018-02-07] MEDS ORDERED: ATORVASTATIN CA 80 MG TABLET (FP) PO SCH (22:00)
[2018-02-08] MEDS: LEVOTHYROXINE NA 100 MCG TABLET (FP) PO SCH (06:02)
[2018-02-08 08:27] LABS: ANION GAP 7 (8-16); BLOOD UREA NITROGEN 26 mg/dL (7-18); CALCIUM 8.6 mg/dL (8.5-10.1); CHLORIDE 110 mmol/L (98-107); CO2 28 mmol/L (21-32); GLUCOSE,RANDOM 107 mg/dL (74-106); POTASSIUM 3.7 mmol/L (3.5-5.1); SODIUM 145 mmol/L (136-145)
--- NOTE | 2018-02-08 09:26 | PN ---
Progress Note (short form) - Note Progress Note: Neurology HISTORY OF PRESENT ILLNESS: 77F with a PMH of HTN, hypothyroid and DM p/w mechanical fall. Per son, he was having an argument with his mother and she "dramatically" fell to the ground. She fell face forward and hit her head. Per pt, she felt lightheaded before she fell but denies LOC. After falling she felt a headache located in her occiput and some mild CP, sharp, retrosternal, nonradiating, nonpleuritic, says this CP is similar but not as bad as her CP in [place] where she went to hospital and was told she "almost had a heart attack". CT head completed and without acute changes. During my evaluation, no complaints and states she is at baseline. CT head completed and without acute changes. Carotid reviewed and discussed, mild athero, no HD significant stenosis. Echo reviewed and mild LV hypertrophy, discussed. Spoke with primary, possibly for discharge. Active Medications Acetaminophen (Tylenol -) 650 mg PO Q4H PRN PRN Reason: Fever Or Pain Last Admin: 02/07/18 02:10 Dose: 650 mg Amiodarone HCl (Cordarone -) 200 mg PO DAILY [facility] Last Admin: 02/07/18 09:43 Dose: 200 mg Amlodipine Besylate (Norvasc -) 5 mg PO DAILY [facility] Last Admin: 02/07/18 09:43 Dose: 5 mg Apixaban (Eliquis -) 2.5 mg PO BID [facility] Last Admin: 02/07/18 21:26 Dose: 2.5 mg Atorvastatin Calcium (Lipitor -) 80 mg PO HS [facility] Last Admin: 02/07/18 21:26 Dose: 80 mg Levetiracetam (Keppra -) 500 mg PO BID [facility] Last Admin: 02/07/18 21:26 Dose: 500 mg Levothyroxine Sodium (Synthroid -) 100 mcg PO DAILY@0700 [facility] Last Admin: 02/08/18 06:02 Dose: Not Given Losartan Potassium (Cozaar -) 100 mg PO DAILY [facility] Last Admin: 02/07/18 09:43 Dose: 100 mg PHYSICAL EXAMINATION Vital Signs Period Temp Pulse Resp BP Sys/Su Pulse Ox Last 24 Hr 98 F-98.3 F 61-78 14-18 130-185/59-92 98-100 GENERAL: Awake, alert, and fully oriented, in mild distress. obese HEAD: Normal with no obvious signs of trauma. EYES: PERRLA, extraocular movements intact, sclera anicteric, conjunctiva clear. No lid lag. EARS, NOSE, THROAT: nares patent, oropharynx clear without exudates. MMM. poor dentition NECK: Normal range of motion, supple without lymphadenopathy, JVD, or masses. LUNGS: CTAB. No wheezes, and no crackles. No accessory muscle use. HEART: RRR, normal S1 and S2 without murmur, rub or gallop. TTP w/ sternal rub ABDOMEN: Soft, NTND +BS, no guarding, no rebound, no masses. No hepatomegaly or splenomegaly. MUSCULOSKELETAL: LE exam limited due to pain. TTP along hips/pelvic b/l UPPER EXTREMITIES: 2+ pulses, warm, well-perfused. No cyanosis. No clubbing. No peripheral edema. LOWER EXTREMITIES: feet were cold but well perfused and 2+ pulses. +calf tenderness b/l. TTP along tibia b/l. No peripheral edema. NEUROLOGICAL: Cranial nerves II-XII intact. Normal speech, moves all extremities equally sensory intact, gait without ataxia SKIN: Warm, dry, normal turgor, no rashes or lesions noted, normal capillary refill. CBCD WBC 3.9 K/mm3 (4.0-10.0) L 02/07/18 06:05 RBC 3.81 M/mm3 (3.60-5.2) 02/07/18 06:05 Hgb 11.4 GM/dL (10.7-15.3) 02/07/18 06:05 Hct 34.3 % (32.4-45.2) 02/07/18 06:05 MCV 89.9 fl (80-96) 02/07/18 06:05 MCHC 33.3 g/dl (32.0-36.0) 02/07/18 06:05 RDW 15.1 % (11.6-15.6) 02/07/18 06:05 Plt Count 172 K/MM3 (134-434) 02/07/18 06:05 MPV 8.3 fl (7.5-11.1) 02/07/18 06:05 CMP Sodium 145 mmol/L (136-145) 02/08/18 07:30 Potassium 3.7 mmol/L (3.5-5.1) 02/08/18 07:30 Chloride 110 mmol/L (98-107) H 02/08/18 07:30 Carbon Dioxide 28 mmol/L (21-32) 02/08/18 07:30 Anion Gap 7 (8-16) L 02/08/18 07:30 BUN 26 mg/dL (7-18) H 02/08/18 07:30 Creatinine 1.0 mg/dL (0.55-1.02) 02/08/18 07:30 Creat Clearance w eGFR 53.48 (>60) 02/08/18 07:30 Calcium 8.6 mg/dL (8.5-10.1) 02/08/18 07:30 Total Bilirubin 0.7 mg/dL (0.2-1.0) 02/07/18 06:05 AST 29 U/L (15-37) 02/07/18 06:05 ALT 35 U/L (12-78) 02/07/18 06:05 Alkaline Phosphatase 105 U/L (45-117) 02/07/18 06:05 Total Protein 7.9 g/dl (6.4-8.2) 02/07/18 06:05 Albumin 3.3 g/dl (3.4-5.0) L 02/07/18 06:05 CT head reviewed echo Reviewed Carotid Doppler reviewed ASSESSMENT/PLAN: 77F with a PMH of HTN, hypothyroid and DM p/w mechanical fall. Per son, he was having an argument with his mother and she "dramatically" fell to the ground. She fell face forward and hit her head. Per pt, she felt lightheaded before she fell but denies LOC. After falling she felt a headache located in her occiput and some mild CP, sharp, retrosternal, nonradiating, nonpleuritic, says this CP is similar but not as bad as her CP in [place] where she went to hospital and was told she "almost had a heart attack". CT head completed and without acute changes. During my evaluation, no complaints and states she is at baseline. CT head completed and without acute changes. Is at baseline. MRI, MRA discontined, not needed orthostatics check Cardiology eval/ followup Increase hydration carotid and echo stable Event not consistent with seizure, can continue home medication Monitor blood pressure, maintain normotensive range Can cont losartan, follow up cardiology recs Monitor Glucose, maintain euglycemic range Fall precautions Neurologically stable
[2018-02-08] MEDS ORDERED: REGADENOSON 0.4 MG/5 ML PRE-FILLED SYRINGE IVPUSH ONE ×2 (09:59→10:15)
--- NOTE | 2018-02-08 11:00 | PN ---
Progress Note, Physician Chief Complaint: Pt undergoing stress MIBI today. History of Present Illness: The patient is a 77 woman with a PMH of HTN and DM who presents to the ER after sustaining a fall. The son is at bedside and is translating as the pt refused a telephone airfield manager. The son states that he was having an argument with his mother and she "dramatically" fell to the ground. She fell face forward and hit her head. She denies LOC but admits to a headache located in her occiput. She denies neck pain. She admits to mild CP, sharp, retrosternal, nonradiating, nonpleuritic. She also states she became slightly lightheaded before she fell. She admits to epigastric abdominal pain, CP, and resolved lightheadedness. She denies SOB. - Current Medication List Current Medications: Active Medications Acetaminophen (Tylenol -) 650 mg PO Q4H PRN PRN Reason: Fever Or Pain Last Admin: 02/07/18 02:10 Dose: 650 mg Amiodarone HCl (Cordarone -) 200 mg PO DAILY [facility] Last Admin: 02/07/18 09:43 Dose: 200 mg Amlodipine Besylate (Norvasc -) 5 mg PO DAILY [facility] Last Admin: 02/07/18 09:43 Dose: 5 mg Apixaban (Eliquis -) 2.5 mg PO BID [facility] Last Admin: 02/07/18 21:26 Dose: 2.5 mg Atorvastatin Calcium (Lipitor -) 80 mg PO HS [facility] Last Admin: 02/07/18 21:26 Dose: 80 mg Levetiracetam (Keppra -) 500 mg PO BID [facility] Last Admin: 02/07/18 21:26 Dose: 500 mg Levothyroxine Sodium (Synthroid -) 100 mcg PO DAILY@0700 [facility] Last Admin: 02/08/18 06:02 Dose: Not Given Losartan Potassium (Cozaar -) 100 mg PO DAILY [facility] Last Admin: 02/07/18 09:43 Dose: 100 mg - Objective Vital Signs: Vital Signs Temperature 98.0 F 02/08/18 05:53 Pulse Rate 63 02/08/18 05:53 Respiratory Rate 18 02/08/18 05:53 Blood Pressure 130/59 02/08/18 05:53 O2 Sat by Pulse Oximetry (%) 98 07/25/18 20:22 Labs: CBC, BMP 07/25/18 06:05 02/08/18 07:30 INR, PTT INR 1.11 (0.82-1.09) 02/07/18 06:05 Problem List - Problems (1) HTN (hypertension) Assessment/Plan: on losartan and amlodipine. Code(s): I10 - ESSENTIAL (PRIMARY) HYPERTENSION (2) Chest pain Assessment/Plan: TNI negative. For stress MIBI today; if no significant ischemia or injury, pt may be followed up as outpatient from a cardiologic standpoint ([facility] see "Atrial fibrillallation": pt needs careful fu as outpatient). Code(s): R07.9 - CHEST PAIN, UNSPECIFIED Qualifiers: Chest pain type: unspecified Qualified Code(s): R07.9 - Chest pain, unspecified (3) Fall Assessment/Plan: ? syncopal episode. carotid US: mild atherosclerosis; no stenoses. Aggressive lipid contol. ECHO: normal LVEF; abnormal diastolic compliance; mild valvular regurgitation. Stress Lexiscan MIBI pending. Keep BP controlled. Maintain hydration. F/u with neurology. Code(s): W19.XXXA - UNSPECIFIED FALL, INITIAL ENCOUNTER (4) Hyperlipidemia Assessment/Plan: f/u lipid profile (keep LDL < 70 mg/dL). On atorvastatin. Code(s): E78.5 - HYPERLIPIDEMIA, UNSPECIFIED (5) Hypothyroidism Assessment/Plan: TSH WNL Code(s): E03.9 - HYPOTHYROIDISM, UNSPECIFIED (6) Atrial fibrillation Assessment/Plan: EKG : normal sinus rhythm. It is unclear if pt has hx AF, but, while in [place], she was changed from ASA to warfarin, and later to apixaban. She is also on amiodarone. Pt needs to be followed carefully as ouptaient to determine whether she needs to continue on amiodarone, with its many potential serious side-effects (and normal LVEF presently), and whethere she needs to continue NOAC. Addendum: I discussed case with Dr. Yumiko Banegas. Pt was seen in [facility] clinic 01/31/18, and was started on Carvedilol 6.25 mg bid; will add to her medications , and plan to titrate dose upward as tolerated as an outpatient. She apparently had an EKG showing AF. It is unclear if she continues to need amiodarone. Wlll f/u as oupttient, and will consider stopping the medication in the near future and continuing with carvedilol. Code(s): I48.91 - UNSPECIFIED ATRIAL FIBRILLATION (7) Seizures Assessment/Plan: on Keppra. Code(s): R56.9 - UNSPECIFIED CONVULSIONS
[2018-02-08 11:22] LABS: CHOLESTEROL 94 mg/dL (50-200); HDL CHOLESTEROL 51 mg/dL (40-60); TRIGLYCERIDES 56 mg/dL (35-160)
--- NOTE | 2018-02-08 14:01 | PN ---
Teaching Attending Note Name of Resident: Alton Weber ATTENDING PHYSICIAN STATEMENT I saw and evaluated the patient. I reviewed the resident's note and discussed the case with the resident. I agree with the resident's findings and plan as documented. SUBJECTIVE: No fever or chills . No CP ,no abd pain. no dizziness . complains of numbness in both soles x long time OBJECTIVE: NAD CV: RRR Lungs: CTAB ext: TTP in b/l lower legs on shins . nl sensation on feet ASSESSMENT AND PLAN: 77 y/o lady with h/o Dm, HTN, and A fib who presented with a fall and questionable syncope during an argument with her son. 1- Fall, and questionable syncope: no events on tele . No falls or syncopal episodes since admission 2- CP:stress test today pending 3- H/o A fib : confirmed by EKG at Her PCP's ( per Dr. Gaspar's note ) - cont eliquis and amiodarone - Dr. Grace's input appreciated. Coreg added and f/u as out pt for possible DC amiodarone - f/u with card 4- h/o seizure : cont home keppra 5- HTN urgency: cont Losartan and Norvasc. now on coreg dc plan pending stress test
[2018-02-08] MEDS: amLODIPine BESYLATE 5 MG TABLET (FP) PO SCH (14:17)
[2018-02-08] MEDS: levETIRAcetam 500 MG TABLET (FP) PO SCH (14:17)
[2018-02-08] MEDS: LOSARTAN POTASSIUM 50 MG TABLET (FP) PO SCH (14:17)
[2018-02-08] MEDS: APIXABAN 2.5 MG TABLET PO SCH (14:17)
[2018-02-08] MEDS: AMIODARONE HCL 200 MG TABLET (FP) PO SCH (14:17)
[2018-02-08] MEDS ORDERED: CARVEDILOL 6.25 MG TABLET (FP) PO SCH (14:45)
[2018-02-08 15:00] VITALS: BP 164/76; PULSE 72; TEMP 97.9
--- NOTE | 2018-02-08 16:25 | DS ---
Physical Exam: SUBJECTIVE: Patient seen and examined at bedside. No complaints, all symptoms resolved, feeling well. OBJECTIVE: Vital Signs Period Temp Pulse Resp BP Sys/Su Pulse Ox Last 24 Hr 97.9 F-98.3 F 61-72 18-18 130-164/59-83 98-98 PHYSICAL EXAM GENERAL: The patient is awake, alert, and fully oriented, in no acute distress. HEAD: Normal with no signs of trauma. EYES: PERRLA, EOMI ENT: moist mucous membranes NECK: Trachea midline, full range of motion, supple LUNGS: Breath sounds equal, clear to auscultation bilaterally, no wheezes, no crackles, no accessory muscle use HEART: Regular rate and rhythm, S1, S2 without murmur, rub or gallop. ABDOMEN: +bs, soft, NT, ND, vertical scar from umbilicus to symphysis pubis EXTREMITIES: 2+ pulses, warm, well-perfused, no edema, no LE swelling MSK: TTP in legs b/l NEUROLOGICAL: Cranial nerves II-XII intact b/l, sensorium intact, poor compliance with motor strength assessment LABS Laboratory Results - last 24 hr 02/08/18 07:30 Sodium 145 Potassium 3.7 Chloride 110 H Carbon Dioxide 28 Anion Gap 7 L BUN 26 H Creatinine 1.0 Creat Clearance w eGFR 53.48 Random Glucose 107 H Calcium 8.6 Triglycerides 56 Cholesterol 94 Total LDL Cholesterol 44 HDL Cholesterol 51 MICROBIOLOGY UCx 02/06/18: NGTD IMAGING Head CT 02/06/18: "No evidence of acute intracranial pathology." CXR 02/06/18: "Cardiomegaly, no acute disease." R Hip/pelvis XR 02/07/18: "An AP view of the pelvis and images of the right hip reveal an intact right hip and iliac bones. The SI joints are patent. The hips appear symmetrical with no sign of fracture or subluxation. There is suggestion of old trauma involving the right superior and inferior pubic rami. There are pelvic phleboliths. There are calcifications seen inferior to the left inferior pubic ramus. There is retained stool. If symptoms persist, further imaging with CT may be of help." L hip/pelvis XR 02/07/18: "No acute left hip pathology." L tib/fib XR 02/07/18: "No acute left tibial or fibular pathology. If symptoms persist, further imaging may be of help." R tib/fib XR 02/07/18: "No acute right tibial or fibular pathology." Carotid dopplers 02/07/18: "Mild atherosclerotic disease with no evidence of hemodynamically significant stenoses." Lexiscan stress ecg 02/08/18: "FINAL CONCLUSION: EXERCISE RESULTS: Normal lexiscan stress ecg. NUCLEAR RESULTS: No ischemia. LVEF 55%" HOSPITAL COURSE: Date of Admission:02/06/18 The patient is a 77 y/o F w/PMHx HTN, hypothyroid, untreated DM, questionable arrhythmia (no known Dx but prescribed amiodarone and eliquis), additionally reports Bx positive for thyroid cancer in unknown circumstances, p/w mechanical fall vs syncope during argument with son over aluminum sheeting. Son reports his mother "dramatically" fell to the ground. Patient provides inconsistent history regarding LOC during event, reports hitting her head, afterwards felt a headache located in her occiput and some mild CP, sharp, retrosternal, nonradiating, nonpleuritic, says this CP is similar but not as bad as her CP in [place] where she went to hospital and was told she "almost had a heart attack". Pt endorses multiple hx of falls, says her legs feel weak. Has fallen in shower and at rehab center, h/o pelvic/hip Fx. BP on admission 200/100. Chemistries, hematology, LFTs all unremarkable. EKG unremarkable. Serial troponins negative. Imaging as per above and unremarkable. Echocardiogram unremarkable. Nuclear stress test unremarkable. Predicates for patient's use of amiodarone and eliquis is unclear, but will be followed outpatient with cardiology. Home eliquis BID dose increased from 2.5 to 5 as no known contraindication to full dose. Coreg 6.25 BID added to home Losartan for improved HTN control (may have been previously prescribed). All symptoms were resolved by HD2. Patient was discharged on home medications with changes as above and referred for followup to outpatient primary care and cardiology. Date of Discharge: 02/08/18 Minutes to complete discharge: 40 Discharge Summary Reason For Visit: CHEST PAIN Current Active Problems HTN (hypertension) (Chronic) Hyperlipidemia (Chronic) Hypothyroidism (Chronic) Seizures (Chronic) Condition: Improved - Instructions Diet, Activity, Other Instructions: You were hospitalized due to a fall and chest pain. You underwent testing and evaluation which determined that these symptoms were not caused by a problem with your heart. You further underwent a stress test which determined that you are not at elevated risk of having a heart attack. You also had imaging studies performed which showed that you do not have any broken bones. Referrals You have been given referrals for followup care with Dr. Banegas for primary care and Dr. Grace for cardiology. Please keep appointments with these providers within one week of our discharge. Medications You should resume your home medications as directed prior to your followup appointments. Drs. Grace and Makenzie will determine your need for adjustments to your medications. Please do not make changes to your medications without first seeing your doctors. Medical recommendations Please keep well hydrated, stand up slowly from seated and lying positions, and take all of your prescriptions as directed. If you develop new or worsening chest pain, shortness of breath, lightheadedness , or any other new symptoms, please return to the Emergency Department. Changes to Your medications : Your eliquis dose was increased to 5 twice a day instead of 2.5 twice a day. Now you are on Coreg. Referrals: Ralph Grace MD [Staff Physician] - Barbara Banegas MD [Staff Physician] - 1 Week Disposition: HOME - Home Medications Comprehensive Discharge Medication List: Ambulatory Orders Amiodarone HCl 200 mg PO DAILY 02/06/18 Atorvastatin Ca [Lipitor] 80 mg PO HS 02/06/18 Levothyroxine [Synthroid -] 100 mcg PO DAILY 02/06/18 Losartan Potassium 100 mg PO DAILY 02/06/18 levETIRAcetam [Keppra -] 500 mg PO BID 02/06/18 Apixaban [Eliquis] 5 mg PO BID #60 tablet 02/08/18 Carvedilol [Coreg -] 6.25 mg PO BID 02/08/18 This patient is new to me today: No Emergency Visit: No Critical Care patient: No - Discharge Referral Referred to [facility] Med P.C.: No
== END 2018-02-08 18:24 | disposition home or self-care (01) ==
LOC: JER 15:21 → UNDOADMOB 18:37 → JERBED 18:37 → OBSVTOIN 02-07 01:36 → INTOOBSV 02-07 01:36 → JERBED 02-07 14:59 → J4S 02-07 14:59
PROVIDERS: ADMIT Internal Medicine; ATTEND Internal Medicine
PROC: 3E033GC Introduction of Other Therapeutic Substance into Peripheral Vein, Percutaneous Approach (ICD-10-PCS; principal; 2018-02-08)
DX: R07.9 Chest pain, unspecified (principal); R55 Syncope and collapse; I10 Essential (primary) hypertension; E11.9 Type 2 diabetes mellitus without complications; E03.9 Hypothyroidism, unspecified; E66.9 Obesity, unspecified; G40.909 Epilepsy, unspecified, not intractable, without status epilepticus; Z68.30 Body mass index [BMI] 30.0-30.9, adult; Z88.0 Allergy status to penicillin; Z79.01 Long term (current) use of anticoagulants; W18.39XA Other fall on same level, initial encounter; Y93.89 Activity, other specified; Y92.009 Unspecified place in unspecified non-institutional (private) residence as the place of occurrence of the external cause
CPT/HCPCS: 36415; 70450-TC; 71046-TC-FY; 73523-TC-FY; 73590-TC-LT-FY; 73590-TC-RT-FY; 78452-TC; 80048; 80053; 80061; 81003; 81015; 82550; 82962; 83036; 83690; 83721; 83735; 84100; 84436; 84443; 84480; 84484; 85025; 85610; 85651; 85730; 86140; 87086; 93005; 93010; 93017; 93306-TC; 93880-TC; 96374; 97116-GP; 97161-GP; 99285-25; A9502; G0378; J2785

== ENCOUNTER 2018-05-13 20:26 | Emergency (ER) | payer OTHER ==
[2018-05-13 20:51] VITALS: BP 151/79; PULSE 62; TEMP 98.7; BMI 29.8
[2018-05-13 21:39] LABS: URINE APPEARANCE CLEAR; URINE BILIRUBIN NEGATIVE (<2.0 mg/dL); URINE COLOR LTYELLOW; URINE GLUCOSE (UA) NEGATIVE (NEGATIVE); URINE KETONE NEGATIVE (NEGATIVE); URINE LEUK ESTERASE 1+ (NEGATIVE); URINE NITRITE NEGATIVE (NEGATIVE); URINE PROTEIN 1+ (NEGATIVE); URINE UROBILINOGEN NEGATIVE mg/dL (0.2-1.0)
--- NOTE | 2018-05-13 21:40 | PDOC ---
Attending Attestation - HPI HPI: 05/13/18 21:50 The patient is a 77 year old female, with a significant PMH of 'thyroid issue,' HLD, HTN, DM, on eliquis who presents to the emergency department with sore throat and cough for the past three days. Patient states she noticed some blood specks in her cough. Patient reports discomfort whenever she tries to swallow her food. The patient denies chest pain, shortness of breath, headache and dizziness. Denies fever, chills, nausea, vomit, diarrhea and constipation. Denies dysuria, frequency, urgency and hematuria. Allergies: NKA Past surgical history: None reported. Social history: No reported alcohol, drug or cigarette use. PCP: Dr. Putnam - Physicial Exam PE: 05/13/18 21:50 ADULT EXAM GENERAL: Awake, alert, and fully oriented, in no acute distress HEAD: No signs of trauma EYES: PERRLA, EOMI, sclera anicteric, conjunctiva clear ENT: Auricles normal inspection, hearing grossly normal, nares patent, oropharynx clear without exudates. Moist mucosa NECK: Normal ROM, supple, no lymphadenopathy, JVD, or masses LUNGS: Breath sounds equal, clear to auscultation bilaterally. No wheezes, and no crackles HEART: Regular rate and rhythm, normal S1 and S2, no murmurs, rubs or gallops ABDOMEN: Soft, nontender, normoactive bowel sounds. No guarding, no rebound. No masses EXTREMITIES: Normal range of motion, no edema. No clubbing or cyanosis. No cords, erythema, or tenderness NEUROLOGICAL: Cranial nerves II through XII grossly intact. Normal speech. SKIN: Warm, Dry, normal turgor, no rashes or lesions noted. <Taylor Johnson - Last Filed: 05/13/18 21:54> - Resident Resident Name: Zain Kat - ED Attending Attestation I have performed the following: I have examined & evaluated the patient, The case was reviewed & discussed with the resident, I agree w/resident's findings & plan - Medical Decision Making 05/14/18 07:01 Pt has low TSH that is going lower. She doesn't want to have it worked up in the hospital. She wantsto go to the [facility] and follow as an outpatient. <Dominique Simeon - Last Filed: 05/14/18 07:03>
[2018-05-13 21:48] LABS: EPI CELLS RARE /HPF (FEW); URINE MUCUS RARE
[2018-05-13 21:53] LABS: EOS % 5.3 % (0-4.5); HEMATOCRIT 34.6 % (32.4-45.2); HEMOGLOBIN 11.2 GM/dL (10.7-15.3); LYMPH % 31.2 % (8-40); MCH 29.2 pg (25.7-33.7); MCHC 32.5 g/dl (32.0-36.0); MEAN CELL VOLUME 89.8 fl (80-96); MEAN PLT VOLUME 9.1 fl (7.5-11.1); MONO % 11.1 % (3.8-10.2); NEUT % 51.4 % (42.8-82.8); PLATELET COUNT 169 K/MM3 (134-434); RBC 3.85 M/mm3 (3.60-5.2); WHITE BLOOD COUNT 3.4 K/mm3 (4.0-10.0)
[2018-05-13 22:09] LABS: INR 1.23 (0.83-1.09); PROTHROMBIN TIME (PATIENT) 14.6 SEC (9.7-13.0)
[2018-05-13 22:28] LABS: ALBUMIN 2.9 g/dl (3.4-5.0); ALK PHOS 103 U/L (45-117); ANION GAP 7 MMOL/L (8-16); BILIRUBIN,TOTAL 0.5 mg/dL (0.2-1); BLOOD UREA NITROGEN 25 mg/dL (7-18); CALCIUM 8.2 mg/dL (8.5-10.1); CHLORIDE 109 mmol/L (98-107); CO2 28 mmol/L (21-32); CREATININE 1.3 mg/dL (0.55-1.3); GLUCOSE,RANDOM 141 mg/dL (74-106); MAGNESIUM 2.1 mg/dL (1.8-2.4); POTASSIUM 4.3 mmol/L (3.5-5.1); SGOT/AST 27 U/L (15-37); SGPT/ALT 27 U/L (13-61); SODIUM 143 mmol/L (136-145); TOT PROT 7.5 g/dl (6.4-8.2)
--- NOTE | 2018-05-13 22:42 | PDOC ---
History of Present Illness - General Chief Complaint: Hemoptysis Stated Complaint: THROAT PAIN, COUGHING Time Seen by Provider: 05/13/18 21:16 History Source: Patient - History of Present Illness Initial Comments: 05/13/18 22:37 Patient is a 77F with history of HTN, DM, HLD, pelvis fracture, on eliquis for unknown reasons here today complaining of cough, sore throat and neck pain for the past day. She also complains of dysphagia, stating that she has to use water to push food down. She states that she has developed chest pain after episodes of coughing, and that she's had a small amount of bright red blood coughed up. Patient is also complaining of dysuria. Denies fevers, chills, nausea and vomiting. Denies shortness of breath. Denies sick contacts. Patient states that she was evaluated for a thyroid mass about 9 months ago, and was told at that time she had no cancer but that it was "positive." Patient and daughter unsure of what happened in that workup. Past History - Past Medical History Allergies/Adverse Reactions: Allergies Allergy/AdvReac Type Severity Reaction Status Date / Time Penicillins Allergy Severe Swelling Verified 05/13/18 20:34 Home Medications: Ambulatory Orders Amiodarone HCl 200 mg PO DAILY 02/06/18 Atorvastatin Ca [Lipitor] 80 mg PO HS 02/06/18 Levothyroxine [Synthroid -] 100 mcg PO DAILY 02/06/18 Losartan Potassium 100 mg PO DAILY 02/06/18 levETIRAcetam [Keppra -] 500 mg PO BID 02/06/18 Apixaban [Eliquis] 5 mg PO BID #60 tablet 02/08/18 Carvedilol [Coreg -] 6.25 mg PO BID 02/08/18 Carvedilol [Coreg] 6.25 mg PO BID #60 tablet 02/08/18 Anemia: No Asthma: No Cancer: Yes (thyroid CA) Cardiac Disorders: Yes COPD: No CHF: No Diabetes: Yes GI Disorders: No Disorders: No HTN: Yes Hypercholesterolemia: Yes Liver Disease: No Seizures: Yes Thyroid Disease: Yes Other medical history: hip fracture - Suicide/Smoking/Psychosocial Hx Smoking History: Former smoker Have you smoked in the past 12 months: No If you are a former smoker, when did you quit?: 30 years ago Information on smoking cessation initiated: No Hx Alcohol Use: No Drug/Substance Use Hx: No Review of Systems - Review of Systems Comments:: 05/13/18 22:43 GENERAL/CONSTITUTIONAL: No fever or chills. No weakness. HEAD, EYES, EARS, NOSE AND THROAT: No change in vision. No sore throat. CARDIOVASCULAR: No chest pain or shortness of breath RESPIRATORY: +cough, no wheezing, or hemoptysis. GASTROINTESTINAL: No nausea, vomiting, diarrhea or constipation. GENITOURINARY: No dysuria, frequency, or change in urination. MUSCULOSKELETAL: No joint or muscle swelling or pain. No neck or back pain. SKIN: No rash NEUROLOGIC: No headache, vertigo, loss of consciousness, or change in strength/ sensation. ENDOCRINE: No increased thirst. No abnormal weight change HEMATOLOGIC/LYMPHATIC: No anemia, easy bleeding, or history of blood clots. ALLERGIC/IMMUNOLOGIC: No hives or skin allergy. *Physical Exam - Vital Signs Last Vital Signs Temp Pulse Resp BP Pulse Ox 98.7 F 62 18 151/79 95 05/13/18 20:36 05/13/18 20:36 05/13/18 20:36 05/13/18 20:36 05/13/18 20:36 - Physical Exam Comments: 05/13/18 22:44 GENERAL: Awake, alert, and fully oriented, in no acute distress HEAD: No signs of trauma, normocephalic, atraumatic EYES: PERRLA, EOMI, sclera anicteric, conjunctiva clear ENT: Auricles normal inspection, hearing grossly normal, nares patent, oropharynx clear without exudates. Moist mucosa. No goiter, no nodules appreciated. NECK: Normal ROM, supple, no lymphadenopathy, JVD, or masses LUNGS: No distress, speaks full sentences, clear to auscultation bilaterally HEART: Regular rate and rhythm, normal S1 and S2, no murmurs, rubs or gallops, peripheral pulses normal and equal bilaterally. ABDOMEN: Soft, nontender, normoactive bowel sounds. No guarding, no rebound. No masses EXTREMITIES: Normal inspection, Normal range of motion, no edema. No clubbing or cyanosis. NEUROLOGICAL: Cranial nerves II through XII grossly intact. Normal speech, no focal sensorimotor deficits SKIN: Warm, Dry, normal turgor, no rashes or lesions noted. ED Treatment Course - LABORATORY CBC & Chemistry Diagram: 05/13/18 21:43 05/13/18 21:43 - ADDITIONAL ORDERS Additional order review: Laboratory Results 05/13/18 05/13/18 21:43 21:31 Sodium 143 Potassium 4.3 Chloride 109 H Carbon Dioxide 28 Anion Gap 7 L BUN 25 H Creatinine 1.3 Creat Clearance w eGFR 39.51 Random Glucose 141 H Calcium 8.2 L Magnesium 2.1 Total Bilirubin 0.5 AST 27 ALT 27 Alkaline Phosphatase 103 Creatine Kinase 48 Troponin I < 0.02 Total Protein 7.5 Albumin 2.9 L TSH 0.03 L Urine Color Ltyellow Urine Appearance Clear Urine pH 6.0 Ur Specific [place] 1.019 Urine Protein 1+ H Urine Glucose (UA) Negative Urine Ketones Negative Urine Blood 1+ H Urine Nitrite Negative Urine Bilirubin Negative Urine Urobilinogen Negative Ur Leukocyte Esterase 1+ H Urine WBC (Auto) 2 Urine RBC (Auto) 1 Ur Epithelial Cells Rare Urine Mucus Rare 05/13/18 21:43 RBC 3.85 MCV 89.8 MCHC 32.5 RDW 15.0 MPV 9.1 Neutrophils % 51.4 Lymphocytes % 31.2 Monocytes % 11.1 H Eosinophils % 5.3 H Basophils % 1.0 - RADIOLOGY Radiology Studies Ordered: Category Date Time Status CHEST PA & LAT [RAD] Stat Radiology 05/13/18 21:38 Taken Medical Decision Making - Medical Decision Making 05/13/18 22:44 Patient is 77F with history of HTN, DM, HLD, pelvis fracture, on eliquis here today with cough and dysuria. Chest pain is reproducible with palpation, believe that it most likely msk pain. DDx includes, but is not limited to: URI, pneumonia, UTI, ACS, arrhythmia. EKG shows sinus bradycardia with rate of 59. No st elevations/depressions. Normal axis. Normal intervals. LBBB morphology without QRS widening. Laboratory Tests 05/13/18 05/13/18 05/13/18 21:31 21:43 21:43 WBC 3.4 L Hgb 11.2 Plt Count 169 BUN 25 H Creatinine 1.3 Troponin I < 0.02 TSH 0.03 L Ur Leukocyte Esterase 1+ H Urine WBC (Auto) 2 CBC normal. CMP shows normal Cr. UA shows no clear infection. 05/13/18 22:58 CXR clear. Neck soft tissue demonstrates patent airway without narrowing. Patient tolerating PO without difficulty, says that she feels better. Notified about result of TSH abnormality. Given instructions to follow up with PCP. Discharged home with return precautions. *DC/Admit/Observation/Transfer Diagnosis at time of Disposition: Sore throat (viral), Low TSH level - Discharge Dispostion Disposition: HOME Condition at time of disposition: Good Decision to Admit order: No - Referrals Referrals: Deonte Putnam MD [Primary Care Provider] - - Patient Instructions Printed Discharge Instructions: Thyroid Stimulating Hormone Additional Instructions: Cassidy TSH hoy fue de 0.03, que es baja y sugiere que tiene demasiada hormona tiroidea en cassidy jonnathan. Llame a cassidy PCP maana para programar cody eleuterio. Regrese si tiene algn sntoma nuevo, que empeora o que se relaciona con l, especialmente fiebre, falta de aliento y dolor en el pecho. Print Language: NIUEAN - Post Discharge Activity
--- NOTE | 2018-05-14 09:44 | EKG ---
Test Reason : Blood Pressure : / mmHG Vent. Rate : 059 BPM Atrial Rate : 059 BPM P-R Int : 182 ms QRS Dur : 108 ms QT Int : 472 ms P-R-T Axes : 045 -18 006 degrees QTc Int : 467 ms SINUS BRADYCARDIA VOLTAGE CRITERIA FOR LEFT VENTRICULAR HYPERTROPHY ABNORMAL ECG WHEN COMPARED WITH ECG OF 06-FEB-2018 16:57, NO SIGNIFICANT CHANGE WAS FOUND Confirmed by DAYANA STOCKTON MD ([id number]) on 05/14/2018 9:43:58 AM Referred By: Confirmed By:DAYANA STOCKTON MD
== END 2018-05-13 23:12 | disposition home or self-care (01) ==
LOC: JER 20:26
DX: J02.9 Acute pharyngitis, unspecified (principal); Z79.01 Long term (current) use of anticoagulants; I10 Essential (primary) hypertension; E78.5 Hyperlipidemia, unspecified; Z85.850 Personal history of malignant neoplasm of thyroid
CPT/HCPCS: 36415; 70360-TC-FY; 71046-TC-FY; 80053; 81003; 81015; 82550; 83735; 84443; 84484; 85025; 85610; 87086; 93005; 93010; 99283-25